=== PATIENT | female | born 2000 | race Two or more races ===

== ENCOUNTER 2024-12-11 16:27 | Emergency (ER) | payer SELFPAY ==
[~2024-12-11] VITALS: Ht 172.7 cm; Wt 94.5 kg
[2024-12-11] MEDS: HYDROcodone-ACET 7.5/325MG TAB PO ONE (17:42)
[2024-12-11 18:00] VITALS: BP 119/80; PULSE 82; RESP 20; TEMP 98.3; O2SAT 100
[2024-12-11] MEDS ORDERED: METH-1181 PO (18:08)
[2024-12-11] MEDS ORDERED: IBUP1TAB5 PO (18:08)
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
== END 2024-12-11 19:21 | disposition home or self-care (01) ==
LOC: ER 16:27
DX: K08.89 Other specified disorders of teeth and supporting structures (principal); M79.642 Pain in left hand; M25.562 Pain in left knee; M54.2 Cervicalgia; K13.79 Other lesions of oral mucosa; V89.2XXA Person injured in unspecified motor-vehicle accident, traffic, initial encounter; Y93.I9 Activity, other involving external motion; Y92.488 Other paved roadways as the place of occurrence of the external cause; Y99.8 Other external cause status
CPT/HCPCS: 70450; 72125; 73130; 73562